=== PATIENT | male | born 1965 | race American Indian/Alaskan Native ===

== ENCOUNTER 2017-03-25 10:47 | Day surgery (SDC) | payer OTHER ==
[2017-03-25] MEDS ORDERED: DIPRIVAN 10 MG/ML IV ONE ×2 (11:51)
[2017-03-25] MEDS ORDERED: WATER FOR IRRIG STERILE ONE (12:44)
--- NOTE | 2017-03-25 12:52 | Operative Report ---
Operative Report Operative Report: Date of procedure: 03/25/2017 Procedure: Colonoscopy. Attending physician: Lenny Vargas MD Veterinary Assistant: Lenny Vargas MD Indication: Patient is a 51-year-old male who presents for colorectal cancer screening. A colonoscopy serves to evaluate patient for colorectal cancer screening. Consent: Informed consent was obtained after advising the patient and family regarding nature of this procedure, its indications, potential benefits as well as possible complications including but not limited to bleeding perforation and adverse reaction to medication, infection as well as other cardiopulmonary complications. An informed written and verbal consent was then obtained after due opportunity was provided for questions and answers. Monitoring: Patient was monitored continuously with pulse oximetry and electrocardiographic recordings as well as blood pressure recordings. Vital signs remained stable throughout this procedure with no untoward events. Preoperative assessment: Patient was assessed immediately prior to this procedure for capacity to tolerate monitored anesthesia care and moderate sedation as well as general anesthesia. Patient's ASA classification is 2, Mallampati class is 2, Hyomental distance is 3. Instrument: Fujinon videocolonoscope. Fujinon video endoscope. Medications: Propofol given intravenously in divided doses. For details please refer to anesthesia records. Description of procedure: Patient was placed in the left lateral decubitus position after achieving sedation, a digital rectal examination was performed following which the colonoscope was introduced into the anal verge and advanced to the cecum which was identified by the cecal valve, the appendiceal orifice, as well as by the cecal strap and direct transillumination. The colonoscope was subsequently withdrawn with careful inspection of all mucosal surfaces. Patient tolerated this procedure well and was subsequently taken to the recovery room. The following findings were noted. Findings: Patient had scattered diverticulosis involving the sigmoid and descending colon. The rest of the colon to the cecum was normal, except for areas of retained stool. On the retroflex view at the anal verge, patient had internal hemorrhoids. Patient tolerated the procedure well with no untoward events. Impression: Diverticular disease of the colon. Prominent Internal hemorrhoids Plan: Daily sitz baths as needed. High-fiber diet. PRN stool softeners Repeat colonoscopy in 10 years
--- NOTE | 2017-03-25 12:52 | Discharge Summary ---
Short Stay Discharge Plan Activity: advance as tolerated Weight Bearing Status: Weight Bear as Tolerated Diet: regular
[2017-03-25] MEDS ORDERED: NACL 0.9% 1000 ML 1,000 ML IV SCH (13:00)
[2017-03-25 13:17] VITALS: BP 113/69
--- NOTE | 2017-03-25 13:43 | Post Anesthesia Evaluation ---
- Post Anesthesia Evaluation Patient Participated: Yes Airway Patent: Yes Stable Respiratory Function: Yes Nausea/Vomiting: No Temp > 96.8F: Yes Pain Manageable: Yes Adequeate Hydration: Yes Anesthesia Complications: No Block Receding Appropriately: Not Applicable Patient on Ventilator: No
--- NOTE | 2017-03-25 15:11 | Anesthesia Day of Surgery ---
Anesthesia Day of Surgery - Day of Surgery Patient Examined: Yes Patient H&P Reviewed: Yes Patient is NPO: Yes
--- NOTE | 2017-03-25 15:12 | Anesthesia Consultation ---
Anesthesia Consult and Med Hx Date of service: 03/25/17 - Airway Anesthetic Teeth Evaluation: Good ROM Head & Neck: Adequate Mental/Hyoid Distance: Adequate Mallampati Class: Class II Intubation Access Assessment: Probably Good - Pulmonary Exam CTA: Yes - Cardiac Exam Cardiac Exam: RRR - Pre-Operative Health Status ASA Pre-Surgery Classification: ASA2 - Pulmonary Hx Smoking: Yes (1 ppd x 20years) - Cardiovascular System Hx Hypertension: Yes Hx Valvular Heart Disease: Yes (MVP no symptom) - Central Nervous System Hx Psychiatric Problems: No - Other Systems Hx Alcohol Use: No Hx Substance Use: No Hx Cancer: No - Additional Comments Anesthesia Medical History Comments: NAC
== END 2017-03-25 10:48 | disposition home or self-care (01) ==
LOC: GIO 10:47
PROVIDERS: ATTEND Internal Medicine Gastroenterology
DX: Z12.11 Encounter for screening for malignant neoplasm of colon (principal); K57.30 Diverticulosis of large intestine without perforation or abscess without bleeding; K64.8 Other hemorrhoids; F41.9 Anxiety disorder, unspecified; M19.90 Unspecified osteoarthritis, unspecified site; F32.9 Major depressive disorder, single episode, unspecified; I10 Essential (primary) hypertension; F17.210 Nicotine dependence, cigarettes, uncomplicated; Z79.899 Other long term (current) drug therapy
CPT/HCPCS: G0121; J2704; J7030